=== PATIENT | male | born 1995 | race Caucasian/White ===

== ENCOUNTER 2016-03-31 12:44 | Emergency (ER) | payer OTHER ==
[2016-03-31 13:52] VITALS: BP 123/86
--- NOTE | 2016-03-31 14:24 | UC ---
Respiratory Complaint HPI - HPI Summary HPI Summary: 20 yo male with <48 hours of fever/chills/runny nose and cough sl SOB no n/v/d hx asthma - History of Current Complaint Chief Complaint: UCRespiratory Stated Complaint: FEVER Time Seen by Provider: 03/31/16 13:55 Hx Obtained From: Patient Onset/Duration: Sudden Onset, Lasting Days Timing: Constant Severity Initially: Moderate Severity Currently: Moderate Pain Intensity: 6 Pain Scale Used: 0-10 Numeric Character: Cough: Productive Aggravating Factors: Nothing Alleviating Factors: Nothing Associated Signs And Symptoms: Positive: Fever, Chills, Nasal Congestion, Sinus Discomfort - Allergies/Home Medications Allergies/Adverse Reactions: Allergies Allergy/AdvReac Type Severity Reaction Status Date / Time No Known Allergies Allergy Verified 03/31/16 13:48 PMH/Surg Hx/FS Hx/Imm Hx Previously Healthy: Yes Respiratory History Of: Reports: Asthma - Surgical History Surgical History: Yes Surgery Procedure, Year, and Place: Left Shoulder Labrum, 2012 - Family History Known Family History: Positive: Hypertension - Social History Alcohol Use: Weekly Substance Use Type: Marijuana Smoking Status (MU): Never Smoked Tobacco - Immunization History Most Recent Influenza Vaccination: Not the Season Review of Systems Constitutional: Fever, Chills Skin: Negative Eyes: Negative ENT: Nasal Discharge Respiratory: Cough Cardiovascular: Negative Gastrointestinal: Negative Genitourinary: Negative Motor: Negative Neurovascular: Negative Musculoskeletal: Myalgia Neurological: Headache Psychological: Negative All Other Systems Reviewed And Are Negative: Yes Physical Exam Triage Information Reviewed: Yes Appearance: Well-Appearing, No Pain Distress, Well-Nourished Vital Signs: Initial Vital Signs Temp 100 F 03/31/16 13:45 Pulse 100 03/31/16 13:45 Resp 18 03/31/16 13:45 BP 123/86 03/31/16 13:45 Pulse Ox 100 03/31/16 13:45 Vital Signs Reviewed: Yes Eyes: Positive: Conjunctiva Clear ENT: Positive: Hearing grossly normal, Nasal congestion, Nasal drainage Neck: Positive: Supple, Nontender, No Lymphadenopathy Respiratory: Positive: Chest non-tender, Lungs clear, Normal breath sounds Cardiovascular: Positive: RRR, No Murmur, Pulses Normal Musculoskeletal: Positive: Strength Intact, ROM Intact Neurological: Positive: Alert Psychological Exam: Normal Skin Exam: Normal UC Diagnostic Evaluation - Laboratory O2 Sat by Pulse Oximetry: 100 - normal /not hypoxic Respiratory Course/Dx - Differential Dx/Diagnosis Provider Diagnoses: influenza Discharge - Discharge Plan Condition: Stable Disposition: HOME Prescriptions: Benzonatate CAP* [Tessalon CAP*] 100 - 200 mg PO TID PRN #28 cap PRN Reason: Cough Ibuprofen TAB* [Motrin TAB*] 600 mg PO QID PRN #40 tab PRN Reason: Pain Oseltamivir Phosphate [Tamiflu] 75 mg PO BID #10 cap Patient Education Materials: Influenza (ED) Forms: *School Release Referrals: Non Staff,Doctor [Primary Care Provider] - Additional Instructions: rest fluids recheck in 4 days if not better
== END 2016-03-31 14:47 | disposition home or self-care (01) ==
LOC: UCCORT 12:44
DX: J11.1 Influenza due to unidentified influenza virus with other respiratory manifestations (principal); J45.909 Unspecified asthma, uncomplicated
CPT/HCPCS: 87502; 99212; G0463